=== PATIENT | female | born 1970 | race Caucasian/White ===

== ENCOUNTER 2024-08-01 10:00 | Inpatient (IN) | payer MEDICAID, OTHER ==
[2024-07-27 15:20] VITALS: BMI 43.4
[2024-08-01] MEDS: IV FLUID CONTINUATION 1,000 ML IV ONE (10:42)
[2024-08-01 11:04] LABS: Glucose,Whole Blood 104 mg/dL (70-110)
[2024-08-01] MEDS: SODIUM CHLORIDE 0.9% 1,000 ML IV SCH (11:17)
[2024-08-01 11:20] LABS: Basophils # (A) 0.05 10*3/uL (0.00-0.10); Eosinophils # (A) 0.21 10*3/uL (0.04-0.35); HCT 38.4 % (37.2-46.3); Lymphocytes # (A) 0.92 10*3/uL (0.90-5.00); Lymphocytes % (A) 17.7 %; MCH 24.3 pg (27.0-32.0); MCHC 31.3 g/dL (32.0-37.0); MCV 77.7 fL (80.0-97.0); Mean Platelet Volume 9.7 fL (9.5-12.2); Monocytes # (A) 0.43 10*3/uL (0.20-1.00); Monocytes % (A) 8.3 %; Neutrophils # (A) 3.57 10*3/uL (1.80-7.70); Neutrophils % (A) 68.8 %; Platelet Count 301 10*3/uL (140-440); RBC 4.94 10*6/uL (4.10-5.20); RDW 15.9 % (11.5-14.5); WBC 5.19 10*3/uL (4.50-10.00)
[2024-08-01 11:32] LABS: ALT 25 U/L (4-34); AST 23 U/L (14-36); African American GFR (CKD) 67 (>60 ml/min/1.73 sqM); Albumin 4.2 g/dL (3.5-5.0); Alkaline Phosphatase 71 U/L (38-126); Anion Gap 9 mmol/L; Blood Urea Nitrogen 16 mg/dL (7-17); Calcium 9.5 mg/dL (8.4-10.2); Carbon Dioxide 24 mmol/L (22-30); Chloride 108 mmol/L (98-107); Glucose 109 mg/dL (74-99); Non-African American GFR(CKD) 58 (>60 ml/min/1.73 sqM); Potassium 3.8 mmol/L (3.5-5.1); Sodium 141 mmol/L (137-145); Total Bilirubin 0.7 mg/dL (0.2-1.3); Total Protein 7.5 g/dL (6.3-8.2)
[2024-08-01 12:37] LABS: T4, Free (Free Thyroxine) 1.44 ng/dL (0.78-2.19)
--- NOTE | 2024-08-01 12:50 | P.HPCAR ---
History of Present Illness This is Dr. Avila dictating an H/P on this patient The patient was interviewed and examined IMPRESSION / ASSESSMENT: Patient atrial fibrillation with breakthrough episodes on oral amiodarone Increased BMI Hypothyroidism TSH 8.9 PLAN: Seed with A-fib ablation. Continue Xarelto Heparin dose calculated Reassessment of medication therapy and reduction the dose of amiodarone post ablation HPI Patient continues to have episodes of atrial fibrillation despite oral amiodarone. She has underlying persistent atrial fibrillation She has had A-fib since her hernia surgery in 2021 and also has had pneumonia since then She remains on amiodarone 200 mg a day along with Xarelto 20 mg daily Increased BMI Using CPAP [place] ROS: No fever chills or rigors, no cough, phlegm or expectoration, no nausea, vomiting or diarrhea, no hematuria, dysuria, no musculoskeletal complaints, no strokes or seizures, no skin lesions. EXAMINATION: Pulse rate in the 60s afebrile blood pressure 154/72 mmHg 9 lungs are clear on auscultation no rhonchi no crackles Heart sounds no murmurs no gallop No lower extremity edema No JVD REVIEW OF LABS, ECG & MEDICAL DATA White count 5000, hemoglobin 12,000 platelet count 301,000 all normal Electrolytes normal Renal function 1.1 normal Liver function normal TSH high at 8.9 Physical Exam Vitals: Vital Signs Temp Pulse Resp BP Pulse Ox 08/01/24 11:20 98.4 F 67 16 154/72 96 Intake and Output 07/31/24 08/01/24 08/01/24 22:59 06:59 14:59 Other: Weight 117 kg Past Medical History Past Medical History: Atrial Fibrillation, CVA/TIA, Diabetes Mellitus, GERD/Reflux, Hyperlipidemia, Hypertension, Sleep Apnea/CPAP/BIPAP Additional Past Medical History / Comment(s): DIET CONTROL DM TYPE II. TIA X 2- 2007 AND 2009. RLS. USES BI PAP History of Any Multi-Drug Resistant Organisms: MRSA Date of last positivie culture/infection: 02/2024 MDRO Source:: lungs Past Surgical History: Section, Heart Catheterization, Hernia Repair, Uterine Ablation Additional Past Surgical History / Comment(s): c-sec x 2. hernia x4. heart cath x 2. colonoscopy. biols removed from breast Past Anesthesia/Blood Transfusion Reactions: No Reported Reaction Smoking Status: Never smoker - Past Family History Mother Family Medical History: No Reported History Physical Examination Vital Signs Temp Pulse Resp BP Pulse Ox 08/01/24 11:20 98.4 F 67 16 154/72 96 Intake and Output 07/31/24 08/01/24 08/01/24 22:59 06:59 14:59 Other: Weight 117 kg Results 08/01/24 10:50 08/01/24 10:50 Cardiac Enzymes 08/01/24 Range/Units 10:50 AST 23 (14-36) U/L CBC 08/01/24 Range/Units 10:50 WBC 5.19 (4.50-10.00) 10*3/uL RBC 4.94 (4.10-5.20) 10*6/uL Hgb 12.0 (12.0-15.0) g/dL Hct 38.4 (37.2-46.3) % Plt Count 301 (140-440) 10*3/uL Comprehensive Metabolic Panel 08/01/24 Range/Units 10:50 Sodium 141 (137-145) mmol/L Potassium 3.8 (3.5-5.1) mmol/L Chloride 108 H (98-107) mmol/L Carbon Dioxide 24 (22-30) mmol/L BUN 16 (7-17) mg/dL Creatinine 1.08 H (0.52-1.04) mg/dL Glucose 109 H (74-99) mg/dL Calcium 9.5 (8.4-10.2) mg/dL AST 23 (14-36) U/L ALT 25 (4-34) U/L Alkaline Phosphatase 71 (38-126) U/L Total Protein 7.5 (6.3-8.2) g/dL Albumin 4.2 (3.5-5.0) g/dL Current Medications Generic Name Dose Route Start Last Admin Trade Name Freq PRN Reason Stop Dose Admin Sodium Chloride 1,000 mls @ 20 mls/hr 08/01/24 05:52 08/01/24 11:17 Saline 0.9% IV 08/31/24 05:51 20 mls/hr .Q24H SE Administration Lactated Ringer's 1,000 mls @ 20 mls/hr 08/01/24 05:52 Lactated Ringers IV 08/31/24 05:51 .Q24H SE Intake and Output 07/31/24 08/01/24 08/01/24 22:59 06:59 14:59 Other: Weight 117 kg Patient Weight 08/02/24 06:59 Weight 117 kg 08/01/24 10:50 08/01/24 10:50
[2024-08-01] MEDS: HEPARIN SOD,PORK IN 0.45% NACL 25,000 UNIT in 0.45% NACL 1 250ML.BAG IV ONE (12:51)
[2024-08-01] MEDS: HEPARIN SODIUM,PORCINE 10,000 UNIT in SODIUM CHLORIDE 0.9% 1,000 ML IRRIGATION ONE (12:51)
[2024-08-01] MEDS: HEPARIN SODIUM,PORCINE (1 ML) 2,500 UNIT in SODIUM CHLORIDE 0.9% 250 ML IRRIGATION ONE (12:51)
[2024-08-01] MEDS: LIDOCAINE 1% INJ 10MG/ML (20 ML MDV) SQ ONE (13:09)
[2024-08-01] MEDS: IOPAMIDOL-370 100ML BTL INJ ONE ×2 (13:18)
[2024-08-01] MEDS ORDERED: ACETAMINOPHEN TAB 325 MG TAB PO PRN (15:35)
--- NOTE | 2024-08-01 15:43 | P.PRLE ---
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 She underwent entry-level pulmonary vein isolation, left atrial septal ablation and left atrial roof ablation. At this time I would recommend #1 continuation of rivaroxaban and for the next 2 months completely uninterrupted administration 2. Stop amiodarone 3. Stop diltiazem Continue all other medications as before Thank you for entrusting me with the care of the patient Warm regards Sincerely Michele Avila
--- NOTE | 2024-08-01 15:47 | P.EPPROC ---
- EP Procedure Note Electrophysiology Procedure Note: PROCEDURE A. fib ablation PVI, left atrial septal ablation and left atrial roof ablation DIAGNOSIS Persistent atrial fibrillation, symptomatic, refractory to therapy with oral amiodarone RESULT No left atrial appendage mass seen on intracardiac echo pericardial thickening with trace pericardial effusion, chronic in nature noted on intracardiac echo Successful A. fib ablation/pulmonary vein isolation of all veins using cryo- ablation Complete entrance block in all 4 veins confirmed left atrial septal ablation and confirmed with achieve catheter Left atrial roof ablation confirmed with achieve catheter No evidence for phrenic nerve injury Esophageal deflection YES PROCEDURE DETAILS Written informed consent prior to procedure. Patient brought to the EP lab. General anesthesia given. Heparin administered. A city maintained above 300 seconds Both groins prepped and draped per protocol and venous sheaths placed. Esophagus intubated, circa catheter for temperature monitoring an endoscope for possible esophageal deflection. Phrenic nerve monitoring performed. Esophageal temperature monitoring performed. Esophageal deflection performed if circa catheter overlapping with the balloon or circa temperature less than 27.5°C Intracardiac echocardiography performed. Pericardium evaluated. Left atrial appendage evaluated. Left atrium evaluated along with pulmonary veins Transseptal catheterization performed under fluoroscopic guidance and intracardiac echo guidance Cryoablation sheath exchanged, balloon catheter along with achieve catheter placed in the left atrium. Pulmonary veins isolated in the following sequence: Left superior pulmonary vein followed by left inferior pulmonary vein, followed by right inferior pulmonary vein and lastly right superior pulmonary vein. Phrenic nerve stimulation along with capture thresholds within the SVC and right superior pulmonary vein to identify the phrenic nerve proximity to the cryo- balloon. Pulmonary veins isolated and confirmed with entrance and exit block. Phrenic nerve integrity confirmed at the end of the procedure Ablation of the left atrial roof performed with sequential lesions from the left superior to the right superior pulmonary veins. Ablation of the electrograms confirmed Ablation of the left atrial septum performed with cannulation of the inferior branch of the right superior vein to achieve ablation of the posterior septum of the left atrium. Ablation of electrograms confirmed Diagnostic catheters for the high right atrium, His bundle, coronary sinus placed. LA and RA pressures recorded LA pressure: Diagnostic EP study with coronary sinus pacing and recording Baseline measurements: Cycling 961 ms, NH interval 172, QRS 121, QT 450 ms AH 138 ms and HV interval 40 ms Sinus node recovery times were 1166, 1149 to 1132 ms AV node Wenckebach block was 560 ms Venous sheaths were removed and hemostasis assured with a closure device. Patient extubated and transferred to recovery PROCEDURES PERFORMED Diagnostic EP study CS pacing and recording Left and right transseptal catheterization Catheter the mapping of the tachycardia Intracardiac echocardiography Pulmonary vein isolation with transseptal and comprehensive EPS, [id number] Drug infusion, +[id number] Left atrial roof line, +[id number] Linear ablation, left atrium, +[id number]
[2024-08-01 16:00] LABS: Glucose,Whole Blood 95 mg/dL (70-110)
[2024-08-01] MEDS: ACETAMINOPHEN IV (For NPO) 1,000 MG in EMPTY BAG 1 BAG IVPB ONE (17:11)
[2024-08-01] MEDS: RIVAROXABAN 20 MG TAB PO SCH (17:18)
[2024-08-01] MEDS: HYDROcodone/APAP 5-325MG 1 EACH TAB PO PRN (18:52)
[2024-08-01] MEDS: LACTATED RINGERS 1,000 ML IV SCH (19:21)
[2024-08-01] MEDS: METOPROLOL TARTRATE 50 MG TAB PO SCH (21:21)
[2024-08-01] MEDS: MONTELUKAST 10 MG TAB PO SCH (21:21)
[2024-08-02] MEDS: FUROSEMIDE 40 MG TAB PO SCH (06:53)
[2024-08-02] MEDS: FLUTICASONE NASAL 50MCG/SPRAY 16GM BTL EA NOSTRIL SCH (08:11)
[2024-08-02] MEDS: FENOFIBRATE 160 MG TAB PO SCH (08:12)
[2024-08-02] MEDS: LOSARTAN 50 MG TAB PO SCH (08:12)
[2024-08-02] MEDS: ATORVASTATIN 10 MG TAB PO SCH (08:12)
[2024-08-02] MEDS: LORATADINE 10 MG TAB PO SCH (08:12)
[2024-08-03] MEDS: MAGNESIUM SULFATE-WATER PMX 4 GM in WATER FOR INJECTION 1 100ML.BAG IVPB STA (11:52)
[2024-08-03] MEDS: METOPROLOL TARTRATE 50 MG TAB PO STA (13:03)
[2024-08-03] MEDS: SODIUM CHLORIDE 0.9% 500 ML 250 ML IV ONE (15:30)
--- NOTE | 2024-08-03 16:43 | P.PN ---
Progress Note - Text Patient was seen this morning. She was in sinus rhythm she was doing well Her blood pressure was about 105/73 mmHg Heart sounds are regular Groin hematoma is much better today. She is mildly tender Lungs are clear I plan to see her again in about 12 noon and discharge her on her current medications but I was called by the nurse stating that she had gone to atrial fibrillation with RVR I treated her with IV magnesium 4 g for chemical cardioversion and within 1 to 2 hours of completion of this medication, she was back in sinus rhythm 3 to 4 hours later she is now back in atrial fibrillation once again with RVR However I had already stopped amiodarone about 2 weeks back since she has normal LV function and normal coronary arteries Had also stopped diltiazem and she is currently only on metoprolol 100 mg twice daily At this time she is resting comfortably in the chair blood pressure 105/73 mmHg pulse rate 118 beats minute irregular Heart sounds are irregular but normal no murmurs or gallops Clear lungs Impression Persistent atrial fibrillation status post A-fib ablation with PVI and left atrial septal ablation left atrial roof ablation Morbid obesity Amiodarone has been discontinued for about 2 weeks or so Plan Continue metoprolol 200 mg of flecainide 1 dose stat followed by 100 mg twice daily. The 100 mg dose will be given late tonight Hopefully this results in chemical cardioversion and we will maintain flecainide Colchicine 0.6 mg p.o. daily post A-fib ablation Continue anticoagulation Continue losartan at the lower dose 50 mg daily Continue monitoring Hopefully we can discharge her tomorrow
--- NOTE | 2024-08-03 16:46 | P.PN ---
Progress Note - Text Patient was seen on Wednesday. She developed a hematoma on the. FemoStop was used overnight On auscultation there is no bruit audible She is tender Heart sounds are regular Breath sounds are clear Vitals are stable Impression persistent atrial fibrillation Status post A-fib ablation Morbid obesity Right groin hematoma without a bruit Suggest Continue anticoagulation Continue current cardiac medications FemoStop frequently through the day for compression I will hold her discharge so that we can continue to apply intermittent comp ression of the hematoma and likely discharge tomorrow Amiodarone and Cardizem have been discontinued completely
[2024-08-03] MEDS: FLECAINIDE 50 MG TAB PO STA (16:50)
[2024-08-03] MEDS: COLCHICINE 0.6 MG EACH PO SCH (16:50)
[2024-08-03 19:31] VITALS: RESP 16
[2024-08-03] MEDS: FLECAINIDE 50 MG TAB PO SCH (23:22)
[2024-08-04 08:33] VITALS: BP 103/67; PULSE 48; TEMP 99.2
[2024-08-04] MEDS: LOSARTAN 50 MG TAB PO SCH (09:33)
--- NOTE | 2024-08-07 19:07 | P.DS ---
Providers Date of admission: 08/01/24 10:05 Attending physician: Michele Avila Primary care physician: [facility] Course: Discharge summary Patient is doing better. Her groin is healing well. While she has a left groin hematoma, there is no tenderness today. Nonpulsatile Yesterday she went to atrial fibrillation and I gave her 200 mg of flecainide followed by 100 mg twice daily She chemically converted to sinus rhythm I also started her on colchicine 0.6 mg p.o. daily She has remained on anticoagulation uninterrupted following her successful AF ablation with PVI, left atrial septal ablation and left atrial roof ablation Impression Persistent atrial fibrillation, symptomatic, refractory to amiodarone Amiodarone was discontinued 2 weeks prior to ablation Status post AF ablation with PVI, left atrial septal ablation and left atrial roof ablation Morbid obesity Oral Cardizem discontinued Metoprolol 100 mg twice daily continue Left groin hematoma, improving Postprocedure atrial fibrillation after day 2, chemical conversion with flecainide and continuation of beta-blockers Heart rates are in the 70s today Plan 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-up with 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 within 1 week May stop colchicine within 1 to 2 weeks Continue flecainide 100 mg twice daily for 6 weeks and then consider stopping No more amiodarone Uninterrupted Eliquis especially for the next 2 months postprocedure to reduce risk of stroke Patient Condition at Discharge: Fair Plan - Discharge Summary Discharge Rx Participant: No New Discharge Prescriptions: Discontinued dilTIAZem HCL [Cardizem CD] 360 mg PO DAILY Amiodarone [Cordarone] 200 mg PO DAILY No Action Acetaminophen [Tylenol Extra Strength] 1,000 mg PO Q6HR PRN PRN Reason: Pain Losartan Potassium [Cozaar] 100 mg PO DAILY Fenofibrate Nanocrystallized [Tricor] 145 mg PO DAILY Cetirizine HCl [Zyrtec] 10 mg PO DAILY Potassium Chloride [Klor-Con M20] 20 meq PO DIRECTED Metoprolol Tartrate [Lopressor] 100 mg PO BID Meclizine HCl [Antivert] 25 mg PO DAILY PRN PRN Reason: Vertigo Atorvastatin [Lipitor] 10 mg PO DAILY rOPINIRole HCL [Requip XL] 2 mg PO HS Rivaroxaban [Xarelto] 20 mg PO W/SUPPER Furosemide [Lasix] 20 mg PO DIRECTED RX: Omeprazole 20 mg PO DAILY Fluticasone Nasal Colon [Flonase Nasal Colon] 2 spray EA NOSTRIL DAILY Albuterol Sulfate [Proair Respiclick] 1 puff INHALATION Q6H PRN PRN Reason: Wheezing Montelukast [Singulair] 10 mg PO HS Discharge Medication List Acetaminophen [Tylenol Extra Strength] 1,000 mg PO Q6HR PRN 07/27/24 [History] Albuterol Sulfate [Proair Respiclick] 1 puff INHALATION Q6H PRN 07/27/24 [History] Atorvastatin [Lipitor] 10 mg PO DAILY 07/27/24 [History] Cetirizine HCl [Zyrtec] 10 mg PO DAILY 07/27/24 [History] Fenofibrate Nanocrystallized [Tricor] 145 mg PO DAILY 07/27/24 [History] Fluticasone Nasal Colon [Flonase Nasal Colon] 2 spray EA NOSTRIL DAILY 07/27/24 [History] Furosemide [Lasix] 20 mg PO DIRECTED 07/27/24 [History] Losartan Potassium [Cozaar] 100 mg PO DAILY 07/27/24 [History] Meclizine HCl [Antivert] 25 mg PO DAILY PRN 07/27/24 [History] Metoprolol Tartrate [Lopressor] 100 mg PO BID 07/27/24 [History] Montelukast [Singulair] 10 mg PO HS 07/27/24 [History] Potassium Chloride [Klor-Con M20] 20 meq PO DIRECTED 07/27/24 [History] RX: Omeprazole 20 mg PO DAILY 07/27/24 [History] Rivaroxaban [Xarelto] 20 mg PO W/SUPPER 07/27/24 [History] rOPINIRole HCL [Requip XL] 2 mg PO HS 07/27/24 [History] Follow up Appointment(s)/Referral(s): Milton Corral DO [Primary Care Provider] - 1 Week (patient to call) Patient Instructions/Handouts: Cardiac Ablation (DC) Activity/Diet/Wound Care/Special Instructions: Post EP study - Ablation instructions 1. Keep access sites dry for 2 days. 2. No heavy lifting or straining for 2 days. 3. Avoid bending the hips repeatedly for 2 days. 4. You may go up and down stairs slowly 5. If you have had an ablation for atrial fibrillation or atrial flutter and are on a blood thinner, do not stop the blood thinner even temporarily for 3 months post ablation Call if the following is noted 1. Bleeding, increasing swelling or pain at the access sites. 2. Increasing chest discomfort, especially upon taking a deep breath. 3. Increasing shortness of breath, at rest or with exertion. 4. Undue cough / phlegm 5. Difficulty or pain while swallowing. 6. Pain or change in color in the extremities. 7. Fever, chills, rigors. 8. Increasing headache or neurologic symptoms. 9. Dizziness, fainting, palpitations For patients who have undergone an A-fib ablation /atrial flutter ablation Strict instruction; do NOT stop anticoagulation (Eliquis/Xarelto/Pradaxa) for the next 2 months temporarily, for any elective, nonurgent surgery. This increases the risk of stroke, post A-fib ablation Stop amiodarone completely Stop diltiazem completely Discharge Disposition: HOME SELF-CARE
== END 2024-08-04 11:43 | disposition home or self-care (01) | DRG 982 ==
LOC: CATHEP 10:00 → 6NMEDSUR 10:05
PROVIDERS: ADMIT Internal Medicine Clinical Cardiac Electrophysiology; ATTEND Internal Medicine Clinical Cardiac Electrophysiology
PROC: 02583ZZ Destruction of Conduction Mechanism, Percutaneous Approach (ICD-10-PCS; principal; 2024-08-01 12:00)
PROC: 4A0234Z Measurement of Cardiac Electrical Activity, Percutaneous Approach (ICD-10-PCS; 2024-08-01 12:00)
PROC: 02K83ZZ Map Conduction Mechanism, Percutaneous Approach (ICD-10-PCS; 2024-08-01 12:00)
DX: I97.638 Postprocedural hematoma of a circulatory system organ or structure following other circulatory system procedure (principal); I48.19 Other persistent atrial fibrillation; E03.9 Hypothyroidism, unspecified; E11.9 Type 2 diabetes mellitus without complications; G25.81 Restless legs syndrome; Z68.41 Body mass index [BMI] 40.0-44.9, adult; I10 Essential (primary) hypertension; E66.01 Morbid (severe) obesity due to excess calories; F41.9 Anxiety disorder, unspecified; G47.33 Obstructive sleep apnea (adult) (pediatric); K21.9 Gastro-esophageal reflux disease without esophagitis; Y83.8 Other surgical procedures as the cause of abnormal reaction of the patient, or of later complication, without mention of misadventure at the time of the procedure; E78.5 Hyperlipidemia, unspecified; Z86.73 Personal history of transient ischemic attack (TIA), and cerebral infarction without residual deficits; Z79.899 Other long term (current) drug therapy; Z79.01 Long term (current) use of anticoagulants
CPT/HCPCS: 80053; 81025; 84439; 84443; 85025; 86850; 86900; 86901; 93623; 93656; 93657